=== PATIENT | male | born 1980 | race Caucasian/White ===

== ENCOUNTER 2018-05-24 09:33 | Emergency (ER) | payer SELFPAY ==
[~2018-05-24] VITALS: Ht 185.4 cm; Wt 77.1 kg
[2018-05-24] MEDS ORDERED: ZOFRAN ODT4 MG SL (11:19)
[2018-05-24] MEDS ORDERED: NORCO 5-325 TA1 EACH PO (11:19)
[2018-05-24] MEDS ORDERED: PROTONIX40 MG PO (11:19)
== END 2018-05-24 11:31 | disposition home or self-care (01) ==
LOC: ED 09:33
DX: K29.01 Acute gastritis with bleeding (principal); F17.200 Nicotine dependence, unspecified, uncomplicated; Z88.0 Allergy status to penicillin
CPT/HCPCS: 80053; 81001; 83690; 85025; 96361; 96374; 96375; 99284; J1170; J2405; J7030